=== PATIENT | female | born 1955 | race Caucasian/White ===

== ENCOUNTER 2018-09-15 20:16 | Emergency (ER) | payer BC ==
--- NOTE | 2018-09-15 21:53 | EDM.PDOC ---
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 - Related Data Allergies Allergy/AdvReac Type Severity Reaction Status Date / Time amoxicillin Allergy Cannot Verified 09/15/18 21:28 Remember Home Meds: Home Meds Doxycycline Hyclate 100 mg PO DAILY PRN 09/15/18 [History] Metoprolol Succinate [Toprol XL] 12.5 mg PO DAILY 09/15/18 [History] Sertraline HCl [Zoloft] 100 mg PO DAILY 09/15/18 [History] Past Medical History HEENT History: Reports: None ED ROS GENERAL - Review of Systems Review Of Systems: See Below Constitutional: Reports: Fever HEENT: Reports: No Symptoms Respiratory: Reports: Cough Cardiovascular: Reports: No Symptoms Endocrine: Reports: No Symptoms GI/Abdominal: Reports: No Symptoms : Reports: No Symptoms Musculoskeletal: Reports: Muscle Pain Skin: Reports: No Symptoms Neurological: Reports: Headache Psychiatric: Reports: No Symptoms Hematologic/Lymphatic: Reports: No Symptoms Immunologic: Reports: No Symptoms ED EXAM, GENERAL - Physical Exam Exam: See Below Exam Limited By: No Limitations General Appearance: Alert, WD/WN, No Apparent Distress Ears: Normal External Exam, Normal Canal, Hearing Grossly Normal, Normal TMs Ear Exam: Bilateral Ear: Auricle Normal, Canal Normal, TM normal Nose: Normal Inspection, Normal Mucosa, No Blood Throat/Mouth: Normal Lips, Normal Teeth, Inflammation. No: Normal Oropharynx Head: Atraumatic, Normocephalic Neck: Normal Inspection, Supple, Non-Tender, Full Range of Motion Respiratory/Chest: No Respiratory Distress, Lungs Clear, Normal Breath Sounds, No Accessory Muscle Use, Chest Non-Tender Cardiovascular: Normal Peripheral Pulses, Regular Rate, Rhythm, No Edema, No Gallop, No JVD, No Murmur, No Rub (Female) Exam: Deferred Rectal (Female) Exam: Deferred Back Exam: Full Range of Motion Extremities: Normal Range of Motion Neurological: Alert, Oriented, CN II-XII Intact, Normal Cognition, Normal Gait, Normal Reflexes, No Motor/Sensory Deficits Psychiatric: Normal Affect, Normal Mood Skin Exam: Warm, Dry, Intact, Normal Color, No Rash Course - Vital Signs Last Recorded V/S: Last Vital Signs Temp 37.1 C 09/15/18 20:29 Pulse 108 H 09/15/18 20:29 Resp 16 09/15/18 20:29 BP 154/86 H 09/15/18 20:29 Pulse Ox 93 L 09/15/18 20:29 - Orders/Labs/Meds Orders: Active Orders 24 hr Category Date Time Status Chest 2V [CR] Stat Exams 09/15/18 20:55 Ordered Labs: Laboratory Tests 09/15/18 Range/Units 21:46 WBC 7.74 (5.00-10.00) 10^3/uL RBC 4.97 (3.80-5.50) 10^6/uL Hgb 15.8 (12.0-16.0) g/dL Hct 45.4 (37.0-47.0) % MCV 91.3 (82.0-92.0) fL MCH 31.8 H (27.0-31.0) pg MCHC 34.8 (32.0-36.0) g/dL RDW 14.1 (11.5-14.5) % Plt Count 142 L (150-400) 10^3/uL MPV 9.6 (7.4-10.4) fL Immature Gran % (Auto) 0.4 (0.0-5.0) % Neut % (Auto) 89.7 H (50.0-70.0) % Lymph % (Auto) 5.4 L (20.0-40.0) % Converse % (Auto) 3.9 (2.0-8.0) % Eos % (Auto) 0.5 L (1.0-3.0) % Baso % (Auto) 0.1 (0.0-1.0) % Immature Gran # (Auto) 0.03 (0.00-0.50) 10^3/uL Neut # (Auto) 6.94 (2.50-7.00) 10^3/uL Lymph # (Auto) 0.42 L (1.00-4.00) 10^3/uL Converse # (Auto) 0.30 (0.10-0.80) 10^3/uL Eos # (Auto) 0.04 L (0.10-0.30) 10^3/uL Baso # (Auto) 0.01 (0.00-0.10) 10^3/uL Departure - Departure Time of Disposition: 21:56 Disposition: Home, Self-Care 01 Condition: Good Clinical Impression: History of fever, Viral illness - Discharge Information *PRESCRIPTION DRUG MONITORING PROGRAM REVIEWED*: Not Applicable *COPY OF PRESCRIPTION DRUG MONITORING REPORT IN PATIENT MT: Not Applicable Referrals: Luisa Núñez PA-C [Primary Care Provider] - Forms: ED Department Discharge Additional Instructions: Increase fluids. Tylenol or Motrin for pain or fever. Good hygiene Recheck as needed. - Problem List & Annotations (1) Viral illness SNOMED Code(s): 26476737 Code(s): B34.9 - VIRAL INFECTION, UNSPECIFIED Status: Acute Priority: Medium Current Visit: Yes (2) History of fever SNOMED Code(s): 407261190 Code(s): Z87.898 - PERSONAL HISTORY OF OTHER SPECIFIED CONDITIONS Status: Acute Priority: Medium Current Visit: Yes - Problem List Review Problem List Initiated/Reviewed/Updated: Yes - My Orders Last 24 Hours: My Active Orders 09/15/18 20:55 Chest 2V [CR] Stat - Assessment/Plan Last 24 Hours: My Active Orders 09/15/18 20:55 Chest 2V [CR] Stat Plan: Increase fluids. Tylenol or Motrin for pain or fever. Good hygiene Recheck as needed.
--- NOTE | 2018-09-16 07:48 | CR ---
[id number] RAD/RAD Chest PA And Lateral EXAM: RAD Chest PA And Lateral CLINICAL DATA: COUGH. FEVER. COMPARISON: CORRELATION IS MADE WITH THE EXAM OF MARCH 21, 2008. FINDINGS: A metallic wire projects against the base of the neck. The lungs are clear. The cardiomediastinal contour is normal. The regional bones and soft tissues are unremarkable. IMPRESSION: NO ACUTE PROCESS. Schuyler Sims MD 09/16/18 0747 Thank you for allowing us to participate in the care of your patient.
== END 2018-09-15 22:02 | disposition home or self-care (01) ==
LOC: KA.ED 20:16
DX: B34.9 Viral infection, unspecified (principal); Z88.1 Allergy status to other antibiotic agents
CPT/HCPCS: 36415; 71046; 85025; 87804; 99283-25

== ENCOUNTER 2022-09-26 18:00 | Emergency (ER) | payer MEDICARE, OTHER ==
[2022-09-26] MEDS ORDERED: LORazepam 2 MG/ML SDV IVPUSH ONE (18:44)
[2022-09-26] MEDS ORDERED: Sodium Chloride 0.9% 10 ML Syringe FLUSH PRN (18:44)
[2022-09-26 19:26] LABS: ANION GAP 17.2 mmol/L (5-15); CHLORIDE,CL 100 mmol/L (98-107); ESTIMATED GFR 77 mL/min (>=60); SODIUM,NA 137 mmol/L (136-145)
== END 2022-09-26 20:00 | disposition home or self-care (01) ==
LOC: KA.ED 18:00
DX: I10 Essential (primary) hypertension (principal); Z88.2 Allergy status to sulfonamides
CPT/HCPCS: 80053; 84484; 85025; 93010; 96374; 99284; 99284-25; J2060

== ENCOUNTER 2022-10-08 17:42 | Emergency (ER) | payer MEDICARE, OTHER ==
[2022-10-08] MEDS ORDERED: Sodium Chloride 0.9% 10 ML Syringe FLUSH PRN (17:52)
[2022-10-08] MEDS ORDERED: Metoprolol Tartrate 5 MG/5 ML SDV IVPUSH ONE (17:56)
[2022-10-08] MEDS ORDERED: Sodium Chloride 0.9% 1,000 ML IV ONE (17:57)
[2022-10-08 19:09] LABS: ANION GAP 14.4 mmol/L (5-15); CHLORIDE,CL 108 mmol/L (98-107); SODIUM,NA 144 mmol/L (136-145)
[2022-10-08 19:12] LABS: ESTIMATED GFR 93 mL/min (>=60)
[2022-10-08] MEDS ORDERED: Lisinopril 10 MG Tab PO ONE (19:15)
[2022-10-08] MEDS ORDERED: LORazepam 0.5 MG Tab PO ONE (19:18)
[2022-10-08] MEDS ORDERED: hydrALAZINE 20 MG/ML SDV IVPUSH ONE (20:37)
== END 2022-10-08 22:38 | disposition home or self-care (01) ==
LOC: KA.ED 17:42 → SUPCPDRO 17:42 → KA.ED 22:38
DX: F41.9 Anxiety disorder, unspecified (principal); I10 Essential (primary) hypertension; E03.9 Hypothyroidism, unspecified; Z88.2 Allergy status to sulfonamides; Z79.899 Other long term (current) drug therapy; Z86.16 Personal history of COVID-19
CPT/HCPCS: 36415; 71045; 80053; 83690; 83880; 84484; 85025; 93005; 93010; 96361; 96374; 96375; 99284; 99285-25; A9270-GY; J0360; J3490; J7030